=== PATIENT | female | born 1990 | race Caucasian/White ===

== ENCOUNTER 2020-09-04 15:10 | Emergency (ER) | payer MEDICAID ==
[~2020-09-04] VITALS: Ht 165.1 cm; Wt 59.1 kg
[2020-09-04] MEDS ORDERED: ondansetron 4mg rapidly disintigrating tab PO ONE (15:25)
--- NOTE | 2020-09-04 15:57 | NUR ---
LAB TECHS IN ROOM FOR BLOOD DRAW. PT HAS USED HER VEINS FOR DRUG USE AND IS A DIFFICULT STICK FOR BLOOD.
--- NOTE | 2020-09-04 18:52 | NUR ---
PT STATES UNABLE TO URINATE FOR SAMPLE. PT STATES STRAIGHT CATH IS OKAY WITH HER-PER EDMD TAWANDA, STRAIGHT CATH NOT NECESSARY. NO NEW ORDERS. EDMD OKAY WITH NO SAMPLE
[2020-09-04 18:59] LABS: BASOPHILS # (AUTO) 0.1 X10'3 (0-0.2); EOSINOPHILS % (AUTO) 0.1 % (0-6); HEMATOCRIT 38.9 % (35.0-45.0); HEMOGLOBIN 13.2 g/dl (12.0-16.0); LYMPHOCYTES # (AUTO) 0.7 X10'3 (1.1-4.8); MEAN CORPUSCULAR HEMOGLOBIN 31.2 PG (27.0-31.0); MEAN CORPUSCULAR HGB CONC 33.9 g/dL (33.0-36.5); MEAN CORPUSCULAR VOLUME 92.1 FL (78-98); MEAN PLATELET VOLUME 7.2 FL (7.4-10.4); MONOCYTES # (AUTO) 0.3 X10'3 (0-0.9); MONOCYTES % (AUTO) 2.7 % (2-12); NEUTROPHILS # (AUTO) 10.1 X10'3 (1.8-7.7); NEUTROPHILS % (AUTO) 90.2 % (42-75); PLATELET COUNT 442 X10'3 (140-440); RED BLOOD COUNT 4.23 X10'6 (4.20-5.60); RED CELL DISTRIBUTION WIDTH 14.9 % (11.5-14.5); WHITE BLOOD COUNT 11.2 X10'3 (4.5-11.0)
[2020-09-04 19:11] LABS: ALANINE AMINOTRANSFERASE 20 U/L (12-78); ALBUMIN 3.1 G/DL (3.4-5.0); ALBUMIN/GLOBULIN RATIO 0.6 (1.1-1.5); ALKALINE PHOSPHATASE 114 IU/L (46-116); ANION GAP 12 (8-16); ASPARTATE AMINO TRANSFERASE 23 U/L (10-37); BILIRUBIN,TOTAL 0.3 MG/DL (0.1-1.0); BLOOD UREA NITROGEN 12 MG/DL (7-18); BUN/CREATININE RATIO 14.5 (6.6-38.0); CALCIUM 9.6 MG/DL (8.5-10.1); CHLORIDE 100 MMOL/L (99-107); CREATININE 0.83 MG/DL (0.40-0.90); GLUCOSE 103 MG/DL (70-104); POTASSIUM 3.7 MMOL/L (3.5-5.1); SODIUM 136 MMOL/L (135-145); TOTAL CARBON DIOXIDE 23.7 MMOL/L (24-32); TOTAL PROTEIN 8.3 G/DL (6.4-8.2); eGFR 81 ML/MIN
[2020-09-04 19:22] VITALS: BP 147/95
--- NOTE | 2020-09-04 19:27 | NUR ---
PO CHALLENGE AND GAIT TEST ORDERED. GAVE WATER AND INFORMED PT OF PO CHALLENGE ORDER AND THAT EDMD WOULD LIKE TO MAKE SURE SHE CAN WALK. PT IGNORING MULTIPLE STAFF MEMBERS WHO TOLD HER THE SAME REQUESTS. INFORMED TAWANDA OF PT REFUSING TO PARTICIPATE IN HER CARE, PER TAWANDA, PT CAN BE DISCHARGED WITHOUT COMPLETION OF PO CHALLENGE AND GAIT TEST.
== END 2020-09-04 19:41 | disposition home or self-care (01) ==
LOC: ER 15:10
DX: F11.10 Opioid abuse, uncomplicated (principal); M79.18 Myalgia, other site; R11.0 Nausea; Z59.0 Homelessness; Z88.2 Allergy status to sulfonamides
CPT/HCPCS: 36415; 80053; 85025; 93005; 99284